=== PATIENT | male | born 1950 | race Caucasian/White ===

== ENCOUNTER 2018-05-16 09:30 | Inpatient (IN) | payer OTHER ==
[2018-05-16 10:25] LABS: ADD MAN DIFF? NO
[2018-05-16 10:33] LABS: WHITE BLOOD COUNT 9.2 10^3/ul (4.8-10.8)
[2018-05-16 10:33] LABS: BASOPHIL # 0.1 10^3/ul (0.0-0.1); BASOPHILS % 0.7 % (0.0-2.0); EOSINOPHILS # 0.1 10^3/ul (0.0-0.5); EOSINOPHILS % 0.8 % (0.0-7.0); HEMATOCRIT 42.2 % (42.0-52.0); HEMOGLOBIN 13.8 g/dl (14.0-18.0); LYMPHOCYTES # 1.6 10^3/ul (0.8-2.9); LYMPHOCYTES % 17.5 % (15.0-51.0); MEAN CORPUSCULAR HEMOGLOBIN 29.4 pg (29.0-33.0); MEAN CORPUSCULAR HGB CONC 32.7 g/dl (32.0-37.0); MEAN PLATELET VOLUME 9.6 fl (7.4-10.4); MONOCYTE # 0.9 10^3/ul (0.3-0.9); MONOCYTES % 9.3 % (0.0-11.0); NEUTROPHIL # 6.6 10^3/ul (1.6-7.5); NEUTROPHILS % 71.4 % (39.0-77.0); PLATELET COUNT 340 10^3/UL (140-415); RED BLOOD COUNT 4.69 10^6/ul (4.70-6.10); RED CELL DISTRIBUTION WIDTH 12.3 % (11.5-14.5)
[2018-05-16 10:54] LABS: INR 0.95; PROTIME 12.8 Sec (11.9-14.9)
[2018-05-16 10:58] LABS: ALANINE AMINOTRANSFERASE 14 IU/L (13-69); ALBUMIN 3.9 g/dl (3.3-4.9); ALBUMIN/GLOBULIN RATIO 1.21; ALKALINE PHOSPHATASE 86 IU/L (42-121); ANION GAP 10 (5-13); ASPARTATE AMINO TRANSFERASE 27 IU/L (15-46); BILIRUBIN,INDIRECT 0.3 mg/dl (0-1.1); BILIRUBIN,TOTAL 0.3 mg/dl (0.2-1.3); BLOOD UREA NITROGEN 22 mg/dl (7-20); CALCIUM 9.2 mg/dl (8.4-10.2); CARBON DIOXIDE 28 mmol/L (21-31); CHLORIDE 102 mmol/L (97-110); Estimated GFR 55 mL/min (>60); GLUCOSE 109 mg/dl (70-220); SODIUM 140 mmol/L (135-144); TOTAL PROTEIN 7.1 g/dl (6.1-8.1)
[2018-05-16 11:09] LABS: TROPONIN-I < 0.012 ng/ml (0.000-0.120)
[2018-05-16] MEDS: SOD CHLORIDE 0.9% 1,000 ML IV ×2 (11:52→21:17)
[2018-05-16] MEDS: SOD CHLORIDE 0.9% 100 ML (12:35)
[2018-05-16] MEDS: IODIXANOL LOCM 100 ML BTL (12:35)
[2018-05-16] MEDS: KETOROLAC 15 MG INJ IV (12:36)
[2018-05-16] MEDS ORDERED: ONDANSETRON 4 MG INJ IV (19:30)
[2018-05-16] MEDS ORDERED: ACETAMINOPHEN 325 MG TAB PO (19:30)
[2018-05-16] MEDS ORDERED: NACL 0.9% 3 ML SYG IV (19:30)
[2018-05-16] MEDS ORDERED: ZOLPIDEM 5 MG TAB PO (19:30)
[2018-05-16] MEDS ORDERED: morphine 2 MG INJ IV (19:30)
[2018-05-16] MEDS ORDERED: ALBUTEROL/IPRATROPIUM (NEB) 3 ML AMP HHN (19:30)
[2018-05-16] MEDS ORDERED: DOCUSATE SODIUM 100 MG CAP PO (19:30)
[2018-05-16] MEDS: RISPERIDONE 1 MG TAB PO (20:37)
[2018-05-16] MEDS: RANITIDINE 150 MG TAB PO (20:37)
[2018-05-16] MEDS: ATORVASTATIN 10 MG TAB PO (20:37)
[2018-05-16] MEDS ORDERED: NON-FORMULARY/PATIENT OWN MED (Simvastatin* (Zocor*) 20 MG) PO (21:00)
[2018-05-17] MEDS ORDERED: GLUCAGON 1 MG INJ IM (00:30)
[2018-05-17] MEDS ORDERED: GLUCOSE GEL 15 GRAM TUBE BUCCAL (00:30)
[2018-05-17] MEDS ORDERED: DEXTROSE 50% 50 ML SYRINGE IV ×2 (00:30)
[2018-05-17] MEDS ORDERED: GLUCOSE GEL 15 GRAM TUBE PO ×2 (00:30)
[2018-05-17] MEDS: ACCU-CHEK XX (02:00)
[2018-05-17] MEDS: morphine 4 MG/ML VIAL IV (05:17)
[2018-05-17] MEDS: PANTOPRAZOLE (EC) 40 MG TAB PO (05:17)
[2018-05-17 06:23] LABS: ADD MAN DIFF? NO
[2018-05-17 06:29] LABS: HEMATOCRIT 39.7 % (42.0-52.0); HEMOGLOBIN 13.1 g/dl (14.0-18.0); LYMPHOCYTES % 25.6 % (15.0-51.0); MEAN CORPUSCULAR VOLUME 90.8 fl (82.0-101.0); MEAN PLATELET VOLUME 9.7 fl (7.4-10.4); MONOCYTES % 12.3 % (0.0-11.0); NEUTROPHILS % 57.6 % (39.0-77.0); PLATELET COUNT 304 10^3/UL (140-415); RED BLOOD COUNT 4.37 10^6/ul (4.70-6.10); RED CELL DISTRIBUTION WIDTH 12.4 % (11.5-14.5)
[2018-05-17 06:29] LABS: WHITE BLOOD COUNT 6.8 10^3/ul (4.8-10.8)
[2018-05-17 06:30] LABS: BASOPHIL # 0.1 10^3/ul (0.0-0.1); BASOPHILS % 0.7 % (0.0-2.0); EOSINOPHILS # 0.3 10^3/ul (0.0-0.5); EOSINOPHILS % 3.7 % (0.0-7.0); LYMPHOCYTES # 1.7 10^3/ul (0.8-2.9); MONOCYTE # 0.8 10^3/ul (0.3-0.9); NEUTROPHIL # 3.9 10^3/ul (1.6-7.5)
[2018-05-17] MEDS: SOD CHLORIDE 0.9% 1,000 ML IV ×2 (06:31→16:27)
[2018-05-17 07:01] LABS: ANION GAP 7 (5-13); BLOOD UREA NITROGEN 20 mg/dl (7-20); CALCIUM 8.7 mg/dl (8.4-10.2); CARBON DIOXIDE 28 mmol/L (21-31); CHLORIDE 101 mmol/L (97-110); Estimated GFR > 60 mL/min (>60); GLUCOSE 95 mg/dl (70-220); MAGNESIUM 1.9 mg/dl (1.7-2.5); PHOSPHORUS 4.3 mg/dl (2.5-4.9); POTASSIUM 3.9 mmol/L (3.5-5.1); SODIUM 136 mmol/L (135-144)
[2018-05-17 07:06] LABS: FREE THYROXINE INDEX (Calc) 2.92 ug/ml (0.65-3.89); T3 UPTAKE 35.2 % (23.5-40.5); T4 (THYROXINE) 8.3 ug/dl (5.5-11.0)
[2018-05-17 07:21] LABS: HEMOGLOBIN A1C 5.7 % (0-5.9)
[2018-05-17] MEDS: INSULIN ASPART [NOVOLOG] 3 ML PEN SC ×4 (07:55→20:26)
[2018-05-17] MEDS: LORATADINE 10 MG TAB PO (08:49)
[2018-05-17] MEDS: TAMSULOSIN (SR) 0.4 MG CAP PO (08:49)
[2018-05-17] MEDS: HYDROCODONE/APAP (5/325) TAB PO (14:16)
[2018-05-17] MEDS: RISPERIDONE 1 MG TAB PO (20:25)
[2018-05-17] MEDS: ATORVASTATIN 10 MG TAB PO (20:25)
[2018-05-17] MEDS: RANITIDINE 150 MG TAB PO (20:25)
[2018-05-17 20:55] LABS: CREATINE KINASE 79 IU/L (23-200)
[2018-05-17 21:08] LABS: CK-MB 1.56 ng/ml (0.0-2.4); TROPONIN-I < 0.012 ng/ml (0.000-0.120)
[2018-05-18] MEDS: SOD CHLORIDE 0.9% 1,000 ML IV ×2 (01:25→08:21)
[2018-05-18] MEDS: ACCU-CHEK XX (02:00)
[2018-05-18] MEDS: PANTOPRAZOLE (EC) 40 MG TAB PO (06:04)
[2018-05-18 06:10] LABS: ADD MAN DIFF? NO
[2018-05-18 06:34] LABS: WHITE BLOOD COUNT 7.1 10^3/ul (4.8-10.8)
[2018-05-18 06:34] LABS: BASOPHIL # 0.1 10^3/ul (0.0-0.1); EOSINOPHILS # 0.3 10^3/ul (0.0-0.5); EOSINOPHILS % 3.7 % (0.0-7.0); HEMATOCRIT 41.7 % (42.0-52.0); HEMOGLOBIN 13.6 g/dl (14.0-18.0); LYMPHOCYTES # 2.3 10^3/ul (0.8-2.9); LYMPHOCYTES % 32.7 % (15.0-51.0); MEAN CORPUSCULAR HEMOGLOBIN 29.7 pg (29.0-33.0); MEAN CORPUSCULAR HGB CONC 32.6 g/dl (32.0-37.0); MEAN PLATELET VOLUME 9.9 fl (7.4-10.4); MONOCYTE # 0.8 10^3/ul (0.3-0.9); MONOCYTES % 11.3 % (0.0-11.0); NEUTROPHIL # 3.6 10^3/ul (1.6-7.5); PLATELET COUNT 322 10^3/UL (140-415); RED BLOOD COUNT 4.58 10^6/ul (4.70-6.10); RED CELL DISTRIBUTION WIDTH 12.2 % (11.5-14.5)
[2018-05-18 07:11] LABS: ANION GAP 5 (5-13); BLOOD UREA NITROGEN 19 mg/dl (7-20); CALCIUM 8.7 mg/dl (8.4-10.2); CARBON DIOXIDE 31 mmol/L (21-31); CHLORIDE 102 mmol/L (97-110); CREATININE 1.16 mg/dl (0.61-1.24); Estimated GFR > 60 mL/min (>60); GLUCOSE 94 mg/dl (70-220); MAGNESIUM 1.9 mg/dl (1.7-2.5); PHOSPHORUS 4.1 mg/dl (2.5-4.9); POTASSIUM 3.9 mmol/L (3.5-5.1); SODIUM 138 mmol/L (135-144)
[2018-05-18] MEDS: INSULIN ASPART [NOVOLOG] 3 ML PEN SC ×4 (07:55→20:59)
[2018-05-18] MEDS: LORATADINE 10 MG TAB PO (08:18)
[2018-05-18] MEDS: TAMSULOSIN (SR) 0.4 MG CAP PO (08:18)
[2018-05-18] MEDS: REGADENOSON 0.4 MG/5 ML SYG (14:10)
[2018-05-18] MEDS: ATORVASTATIN 10 MG TAB PO (20:59)
[2018-05-18] MEDS: RISPERIDONE 1 MG TAB PO (20:59)
[2018-05-18] MEDS: RANITIDINE 150 MG TAB PO (20:59)
[2018-05-19] MEDS: SOD CHLORIDE 0.9% 1,000 ML IV ×3 (01:10→17:25)
[2018-05-19] MEDS: ACCU-CHEK XX (02:00)
[2018-05-19] MEDS: PANTOPRAZOLE (EC) 40 MG TAB PO (05:29)
[2018-05-19] MEDS: INSULIN ASPART [NOVOLOG] 3 ML PEN SC ×3 (07:55→17:51)
[2018-05-19] MEDS: TAMSULOSIN (SR) 0.4 MG CAP PO (08:31)
[2018-05-19] MEDS: LORATADINE 10 MG TAB PO (08:31)
== END 2018-05-19 18:51 | disposition home or self-care (01) | DRG 312 ==
LOC: E/R 09:30 → TEL 14:44
DX: R55 Syncope and collapse (principal); N17.9 Acute kidney failure, unspecified; F20.9 Schizophrenia, unspecified; E86.0 Dehydration; I20.9 Angina pectoris, unspecified; N40.0 Benign prostatic hyperplasia without lower urinary tract symptoms; Z87.891 Personal history of nicotine dependence; Z79.4 Long term (current) use of insulin
CPT/HCPCS: 36415; 70450; 71045; 71275; 78452; 80048; 80053; 82550; 82553; 82962; 83036; 83735; 84100; 84436; 84479; 84484; 85025; 85610; 93005; 93017; 93306; 93880; 96374; 97116; 97161; 97530; 99285-25